=== PATIENT | male | born 1965 | race Caucasian/White ===

== ENCOUNTER → 2020-05-30 14:59 | Outpatient (CLI) | payer BC, SELFPAY ==
[2020-05-30 15:07] LABS: Red Blood Cells-Urine 0 SEEN /hpf (0-5); Squamous Epithelial Cells - UA 0 SEEN /hpf (0-5); White Blood Cells 0 SEEN /hpf (0-5)
[2020-05-30 17:51] LABS: Absolute Neutrophil Count 7.4 X10^3/uL (2.0-7.7); Basophil# 0.03 X10^3/uL; Basophil% 0.3 % (0-1); Eosinophil# 0.06 X10^3/uL; Eosinophils% 0.6 % (0-5); Hematocrit 47.3 % (40-54); Hemoglobin 15.8 g/dL (13.0-16.5); Lymphocyte % 18.8 % (19-41); Mean Corp Hgb Conc 33.4 g/dL (32-36); Mean Corpuscular Hgb 30.9 pg (27.0-32.0); Mean Corpuscular Volume 92.6 fL (80-94); Mean Platelet Vol. 11.1 fl (6.2-12.0); Monocyte# 0.76 X10^3/uL; Monocyte% 7.5 % (0-10); NRBC Flagged by Analyzer 0 % (0-5); Neutrophil # 7.35 X10^3/uL (2.7-7.7); Neutrophil % 72.5 % (47-70); Platelet Count 311 K/mm3 (150-450); RBC Distribution Width CV 11.8 % (11.6-14.6); RBC Distribution Width SD 40.5 fl (35.1-43.9); Red Blood Count 5.11 M/mm3 (4.6-6.2); White Blood Count 10.1 K/mm3 (4.4-11.0)
[2020-05-30 18:00] LABS: Color, Urine Straw (Yellow); Glucose, Dipstick Normal (Normal); Ketone-Dipstick Negative (Negative); Leukocyte Esterase-Dipstick Negative /ul (Negative); Nitrite-Dipstick Negative (Negative); Occult Blood-Urine Negative /ul (Negative); Protein-Dipstick Negative (Negative); Specific Gravity, Urine 1.015 (1.002-1.030); Urine Bilirubin Dipstick Negative (Negative); Urine Clarity Clear (Clear); Urine Urobilinogen Normal (Normal)
[2020-05-30 18:16] LABS: Bacteria RARE /hpf (None Seen); Mucous, Urine 2+ /hpf (<or=2+)
[2020-05-30 18:29] LABS: Vitamin D,25 Hydroxy 85.2 ng/mL
[2020-05-30 18:33] LABS: ALB/GLOB Ratio 1.4 RATIO (0.9-2.4); AST(SGOT) 14 U/L (15-37); Alanine Aminotransfer ALT/SGPT 33 U/L (16-61); Albumin, Serum 4.2 g/dL (3.2-5.0); Alkaline Phosphatase 82 U/L (45-117); Amylase 66 U/L (25-115); Anion Gap 6 (5-15); BUN 16 mg/dL (7-18); BUN/Creat Ratio 13.7 RATIO (10-20); Chloride 102 mmol/L (98-107); Creatinine, Serum 1.17 mg/dL (0.70-1.30); EST Glomerular Filtration Rate 68 mL/min (>60); Est Glom Filt Rate - Afr Amer 83 mL/min (>60); Globulin 3.1 g/dL (2.2-4.2); Glucose 69 mg/dL (74-106); Lipase 115 U/L (73-393); PSA,Total - Annual Screen 2.92 ng/mL (0.00-4.00); Potassium 3.8 mmol/L (3.5-5.1); Protein, Total 7.3 g/dL (6.4-8.2); Sodium Level 137 mmol/L (136-145); Thyroid Stim Hormone (TSH) 1.51 uIU/mL (0.358-3.74)
[2020-05-30 18:37] LABS: Microalbumin,Random Urine 6.9 mg/L (NO RANGE EST.); Microalbumin:Creatinine Ratio 6.2 mg/g CRE (<30 mg/g CRE)
== END ==
PROVIDERS: PCP Nurse Practitioner; Referring Provider Nurse Practitioner; Visit Provider Nurse Practitioner
DX: R10.9 Unspecified abdominal pain (principal); Z12.11 Encounter for screening for malignant neoplasm of colon; Z12.5 Encounter for screening for malignant neoplasm of prostate; F41.1 Generalized anxiety disorder; E55.9 Vitamin D deficiency, unspecified
CPT/HCPCS: 36415; 80053; 81001; 82043; 82150; 82306; 82570; 83690; 84153; 84443; 85025; G0103

== ENCOUNTER 2020-07-11 06:13 | Day surgery (SDC) | payer BC, SELFPAY ==
[2020-06-11 08:50] VITALS: BMI 20.2
[2020-07-11] VITALS (8 sets, daily range): BP systolic 90–132; BP diastolic 55–68; PULSE 55–59; RESP 14–16; TEMP 36.6–37.4; O2SAT 93–100; BMI 21.8
--- NOTE | 2020-07-11 06:47 | HP.PCM_ITS ---
History and Physical Date of Admission: 07/11/20 Intake Vital Signs 06/11/20 Height 5 ft 7.5 in 06/11/20 Weight: 131 lb 4 oz 06/11/20 BMI 20.2 06/11/20 BP 116/75 06/11/20 Blood Pressure Location [facility] 06/11/20 Position Sitting 06/11/20 Respiration 18 06/11/20 Pulse 59 L 06/11/20 Pulse Source NIBP 06/11/20 Temp 97.9 F 06/11/20 Temp Source Temporal 06/11/20 Pulse Oximetry (%) 96 06/11/20 Oxygen Delivery Method room air Intake Visit Reasons: CSCOPE, WEIGHT LOSS Chief Complaint: colonoscopy/ EGD Ceo Required: No Is patient in pain?: Yes Allergies esomeprazole [From Nexium] Allergy (Mild, Verified 06/11/20 08:50) hives Medications dicyclomine 10 mg capsule 10 mg PO BID #60 cap 06/11/20 [Rx Confirmed 06/11/20] gabapentin 100 mg capsule ea PO 06/11/20 [History Confirmed 06/11/20] mirtazapine 30 mg tablet mg PO 06/11/20 [History Confirmed 06/11/20] rivaroxaban 20 mg tablet 20 mg PO DAILY? tablet 06/11/20 [History Confirmed 06/11/20] PFSH Medical History? (Updated 06/11/20 @ 14:[address] Prabhu Del Rosario MD) Anxiety and depression (Acute) Atrial fibrillation (Acute) Back pain (Acute) Fibromyalgia (Acute) Hemorrhoids (Acute) Myocardial infarction (Acute) Pacemaker (Acute) Sleep apnea (Acute) Surgical History? (Updated 06/11/20 @ 08:49 by Michelle Roman) History of ankle surgery (Acute) Pacemaker (Acute) Family History? (Updated 06/11/20 @ 08:49 by Michelle Roman) Mother HypertensionBrother Cancer ?? ? pancreas Social History? (Updated 06/11/20 @ 14:[address] Prabhu Del Rosario MD) Smoking Status:? Never smoker HPI HPI HPI: MORA BARLOW, is a 55 M who presents to the office today for HPI HPI Surgical H&P: Yes HPI: MORA BARLOW, is a 55 M who presents to the office today for right lower quadrant pain as well as constipation and unintentional weight loss.? The patient has lost over 35 pounds over the last 6 months.? The patient reports a severe amount of anxiety due to multiple social factors and he says this makes the abdominal pain worse.? He is on a blood thinner and he has not been on a PPI.? ROS General General: Yes weight change and fatigue; no appetite, colon cancer, breast cancer or weakness HEENT HEENT: No difficulty swallowing, eye injury, eye surgery, swollen glands or hoarseness Endo Endocrine: No thyroid disease, diabetes mellitus, thyroid cancer, Hair loss, heat intolerance or cold intolerance Skin Skin: Yes changing moles; no rash Musc Musculoskeletal: Yes back problems; no arthritis, rheumatoid arthritis, gout or joint pain Cardio Cardiovascular: Yes pacemaker, atrial fibrillation and heart attack; no murmur, heart disease, high blood pressure, heart stent, palpitations, shortness of breat with exertion or chest pain Psych Psychiatric: Yes depression and anxiety; no hearing voices Resp Respiratory: No shortness of breath, Yes sleep apnea, No cough, No COPD, No asthma, No emphysema, No wheezing Gastro Gastrointestinal: Yes abdominal pain, Yes nausea or vomiting, No diarrhea, Yes constipation, No blood in stool, No acid reflux, Yes hemorrhoids, No ulcers, No gallbladder problem, No black,tarry stools Sridhar Hematologic: Yes blood thinners, No blood disorders, No bleeding, No anemia, No blood clots Neuro Neurologic: No weakness Exam Const General: cooperative Orientation: alert, oriented x3 Resp Effort & Inspection: normal respiratory effort Auscultation: clear to auscultation bilaterally Cardio Rate: regular rate Rhythm: regular rhythm Heart Sounds: no murmurs GI Inspection: non-distended Palpation: soft, nontender Assessment & Plan Problems 1. Weight loss, unintentional? R63.4 2. Constipation, unspecified constipation type? K59.00 3. Right sided abdominal pain? R10.9 Plan The patient reports he is having severe anxiety and he has been having constipation as well as right lower quadrant pain. I will prescribe the patient some Bentyl to see if this helps because he says he has IBS as well.? I would also like him to have an EGD and colonoscopy.? He has had over 30 pounds of unintentional weight loss over the last 6 months.? He also has never had a colonoscopy.? He does not report any blood in the stool.? He had no abdominal pain to palpation but he says the anxiety makes abdominal pain worse as was the constipation. I explained endoscopy in detail to the patient.? I explained the risks including but not limited to stroke or heart attack with anesthesia, perforation of the GI tract, bleeding, infection.? I explained that any of these could necessitate further emergency surgery.? The patient understands and all questions were answered sufficiently.? The patient wishes to proceed with procedure. Prabhu Del Rosario MD Pager: [facility] [address] [place] [address] [address] [place] [address] Office: I have seen and reexamined the patient and there are no changes.
[2020-07-11] MEDS: Lactated Ringers 1,000 ML 100 ML IV (07:04)
--- NOTE | 2020-07-11 07:30 | IMM_PTH ---
PATIENT: MORA BARLOW LOC: EN U#:[id number] AGE/SX: 55/M ROOM: RE07/11/[address]: Dr. Prabhu Del Rosario MD : 1965 BED: DIS: 07/11/2020 SPEC #: [id number] RECD: 07/11/20 11:08 STATUS: CHAY MARYLU #: [id number] ARTURO: 07/11/20 07:[address]: Prabhu Del Rosario DEPT: IMMUNOHISTOCHEMISTRY RECD BY: Carey James ENTERED: 07/11/20 11:09 SP TYPE: IMMUNO OTHR DR: My Palumbo, HIGHWAY CONSTRUCTION INSPECTOR-C Tissues: A - Stomach, NOS Procedures: H Pylori (initial) PHYSICIAN & INSTITUTION [place] [id number] SPECIMEN INFORMATION: Tissue Source: A ? Antrum biopsy Clinical Info: Weight loss, constipation, right-sided abdominal pain Specimen Number: [id number] CPT code: 38838 METHODOLOGY: Deparaffinized sections of prefer/formalin-fixed tissue or PAP/DQ stained slides are incubated with monoclonal/polyclonal antibodies/oligonucleotide probes. Localization is made via biotin free immunoperoxidase method. Appropriate controls are performed and reacted as expected. Results on target cell population are indicated in the following table: RESULTS: ANTIBODY / CLONE RESULT Block A H Pylori (polyclonal) negative These tests were developed and their performance characteristics determined by [facility]. They may not have been cleared or approved by the U.S. Food and Drug Administration. The FDA has determined that such clearance or approval is not necessary. INTERPRETATION: A. Antrum biopsy: Negative for Helicobacter pylori organisms. SJ:adan 07/14/2020
--- NOTE | 2020-07-11 07:30 | EGD_PTH ---
PATIENT: MORA BARLOW LOC: EN U#:[id number] AGE/SX: 55/M ROOM: RE07/11/[address]: Dr. Prabhu Del Rosario MD : 1965 BED: DIS: 07/11/2020 SPEC #: [id number] RECD: 07/11/20 09:52 STATUS: CHAY MARYLU #: [id number] ARTURO: 07/11/20 07:[address]: Prabhu Del Rosario DEPT: SURGICAL PATHOLOGY RECD BY: Savi Melendrez ENTERED: 07/11/20 10:18 SP TYPE: EGD BIOPSY OT DR: My Palumbo, COMMERCIAL FOOD INSTRUCTORBarbC Tissues: A - Gastric mucous membrane B - Sigmoid colon biopsy Procedures: Surgery Specimen Level IV HEADER OPERATION: Colonoscopy, EGD ([facility] PRE-OP DIAGNOSIS: Weight loss, constipation, right-sided abdominal pain TISSUE SUBMITTED: A ? Antrum for H. pylori and path, B ? Sigmoid polyp MICROSCOPIC DIAGNOSIS A. Antrum biopsy: Mild gastritis. See microscopic description and comment. B. Sigmoid polyp, biopsy: Tubular adenoma. Fragments of fecal material. SJ:adan 07/14/2020 COMMENT A. The results of immunohistochemistry for Helicobacter pylori will be reported separately ([id number]). MICROSCOPIC DESCRIPTION Slides are reviewed. A. The specimen shows fragments of gastric mucosa with chronic inflammatory cell infiltrates in the lamina propria consisting of lymphocytes and plasma cells, consistent with mild chronic gastritis. GROSS DESCRIPTION A - Received in fixative is one container labeled with the patient's name and designated gastric antrum. The specimen consists of multiple irregular fragments of light parrish soft tissue that in aggregate measure 0.6 x 0.5 x 0.1 cm. The specimen is totally submitted in one cassette. B - Received in fixative is one container labeled with the patient's name and designated sigmoid polyp. The specimen consists of multiple irregular fragments of light parrish soft tissue that in aggregate measure 0.6 x 0.6 x 0.1 cm. The specimen is totally submitted in one cassette. / AM:adan 07/11/20 TC:1 CPT: 72362 x2
--- NOTE | 2020-07-11 07:53 | OP.EGD_ITS ---
Patient Name: Clemente Galindo Procedure Date: 07/11/2020 7:22 AM Date of : 1965 Age: 55 Procedure: Upper GI endoscopy Indications: Abdominal pain in the right lower quadrant, Weight loss Providers: Prabhu Del Rosario MD Medicines: Monitored Anesthesia Care Patient Profile: This is a 55 year old male. Refer to note in patient chart for documentation of history and physical. Complications: No immediate complications. Estimated blood loss: Minimal. Procedure: Pre-Anesthesia Assessment: - Prior to the procedure, a History and Physical was performed, and patient medications and allergies were reviewed. The patient's tolerance of previous anesthesia was also reviewed. The risks and benefits of the procedure and the sedation options and risks were discussed with the patient. All questions were answered, and informed consent was obtained. Prior Anticoagulants: The patient has taken Xarelto (rivaroxaban), last dose was 2 days prior to procedure. After reviewing the risks and benefits, the patient was deemed in satisfactory condition to undergo the procedure. After obtaining informed consent, the endoscope was passed under direct vision. Throughout the procedure, the patient's blood pressure, pulse, and oxygen saturations were monitored continuously. The gastroscope was introduced through the mouth, and advanced to the third part of duodenum. The upper GI endoscopy was accomplished without difficulty. The patient tolerated the procedure well. Scope In: 7:31:37 AM Scope Out: 7:33:45 AM Total Procedure Duration Time 0 hours 2 minutes 8 seconds Findings: Scattered mild inflammation with hemorrhage characterized by adherent blood was found in the stomach. Biopsies were taken with a cold forceps for Helicobacter pylori testing. The examined duodenum was normal. The esophagus was normal. Impression: - Gastritis with hemorrhage. Biopsied. - Normal examined duodenum. - Normal esophagus. Recommendation: - Discharge patient to home. - Resume previous diet. - Resume Xarelto (rivaroxaban) at prior dose tomorrow. - Await pathology results. - Use Prilosec (omeprazole) 40 mg PO daily. - Use sucralfate tablets 1 gram PO QID for 4 weeks. - Return to my office in 4 weeks. Procedure Code(s): --- Professional --- 65575, Esophagogastroduodenoscopy, flexible, transoral; with biopsy, single or multiple Diagnosis Code(s): --- Professional --- K29.71, Gastritis, unspecified, with bleeding R10.31, Right lower quadrant pain R63.4, Abnormal weight loss CPT copyright 2017 [employer]. All rights reserved. The codes documented in this report are preliminary and upon jogger operator review may be revised to meet current compliance requirements. Prabhu Del Rosario MD 07/11/2020 7:53:28 AM This report has been signed electronically. Number of Addenda: 0 Note Initiated On: 07/11/2020 7:22 AM
--- NOTE | 2020-07-11 07:54 | OP.CCLET_ITS ---
07/11/2020 My Palumbo, AUBREE [address] [place] [address] Re : Upper GI endoscopy procedure for Clemente Galindo Dear Ms. Palumbo This procedure was performed on Saturday, July 11, 2020. My impressions and recommendations are as follows: Impressions : - Gastritis with hemorrhage. Biopsied. - Normal examined duodenum. - Normal esophagus. Recommendations : - Discharge patient to home. - Resume previous diet. - Resume Xarelto (rivaroxaban) at prior dose tomorrow. - Await pathology results. - Use Prilosec (omeprazole) 40 mg PO daily. - Use sucralfate tablets 1 gram PO QID for 4 weeks. - Return to my office in 4 weeks. My findings are described in the full procedure note, which is enclosed. If I can be of further assistance, please feel free to contact me at Doctor phone number(s): , Work: . Sincerely, Prabhu Del Rosario MD 07/11/2020 7:53:28 AM This report has been signed electronically.
--- NOTE | 2020-07-11 07:55 | OP.CCLET_ITS ---
07/11/2020 My Palumbo, AUBREE [address] [place] [address] Re : Colonoscopy procedure for Clemente Galindo Dear Ms. Palumbo This procedure was performed on Saturday, July 11, 2020. My impressions and recommendations are as follows: Impressions : - One small polyp in the sigmoid colon, removed with a hot snare. Resected and retrieved. - The examination was otherwise normal on direct and retroflexion views. Recommendations : - Discharge patient to home. - Resume previous diet. - Continue present medications. - Await pathology results. - Repeat colonoscopy in 5 years for surveillance based on pathology results. My findings are described in the full procedure note, which is enclosed. If I can be of further assistance, please feel free to contact me at Doctor phone number(s): , Work: . Sincerely, Prabhu Del Rosario MD 07/11/2020 7:55:00 AM This report has been signed electronically.
--- NOTE | 2020-07-11 07:55 | OP.COLON_ITS ---
Patient Name: Clemente Galindo Procedure Date: 07/11/2020 7:35 AM Date of : 1965 Age: 55 Procedure: Colonoscopy Indications: Abdominal pain in the right lower quadrant Providers: Prabhu Del Rosario MD Medicines: Monitored Anesthesia Care Patient Profile: This is a 55 year old male. Refer to note in patient chart for documentation of history and physical. Last Colonoscopy: none. The patient's first colonoscopy is today. Complications: No immediate complications. Procedure: Pre-Anesthesia Assessment: - Prior to the procedure, a History and Physical was performed, and patient medications and allergies were reviewed. The patient's tolerance of previous anesthesia was also reviewed. The risks and benefits of the procedure and the sedation options and risks were discussed with the patient. All questions were answered, and informed consent was obtained. Prior Anticoagulants: The patient has taken Xarelto (rivaroxaban), last dose was 2 days prior to procedure. After reviewing the risks and benefits, the patient was deemed in satisfactory condition to undergo the procedure. After I obtained informed consent, the scope was passed under direct vision. Throughout the procedure, the patient's blood pressure, pulse, and oxygen saturations were monitored continuously. The colonoscope was introduced through the anus and advanced to the cecum, identified by appendiceal orifice and ileocecal valve. Scope In: 7:36:03 AM Scope Withdrawal Time 0 hours 6 minutes 37 seconds Scope Out: 7:46:24 AM Total Procedure Duration Time 0 hours 10 minutes 21 seconds Findings: A small polyp was found in the sigmoid colon. The polyp was removed with a hot snare. Resection and retrieval were complete. The exam was otherwise without abnormality on direct and retroflexion views. Impression: - One small polyp in the sigmoid colon, removed with a hot snare. Resected and retrieved. - The examination was otherwise normal on direct and retroflexion views. Recommendation: - Discharge patient to home. - Resume previous diet. - Continue present medications. - Await pathology results. - Repeat colonoscopy in 5 years for surveillance based on pathology results. Procedure Code(s): --- Professional --- 43107, Colonoscopy, flexible; with removal of tumor(s), polyp(s), or other lesion(s) by snare technique Diagnosis Code(s): --- Professional --- D12.5, Benign neoplasm of sigmoid colon R10.31, Right lower quadrant pain CPT copyright 2017 [employer]. All rights reserved. The codes documented in this report are preliminary and upon pumper hand review may be revised to meet current compliance requirements. Prabhu Del Rosario MD 07/11/2020 7:55:00 AM This report has been signed electronically. Number of Addenda: 0 Note Initiated On: 07/11/2020 7:35 AM
== END 2020-07-11 08:51 | disposition home or self-care (01) ==
LOC: EN 06:16 → AC 06:19
PROVIDERS: PCP Nurse Practitioner; Referring Provider Nurse Practitioner; Visit Provider Surgery
PROC: 0DJD8ZZ Inspection of Lower Intestinal Tract, Via Natural or Artificial Opening Endoscopic (ICD-10-PCS; CPT 45378; principal; 2020-07-11 07:25)
DX: D12.5 Benign neoplasm of sigmoid colon (principal); K29.71 Gastritis, unspecified, with bleeding; R63.4 Abnormal weight loss; K58.9 Irritable bowel syndrome, unspecified; I48.91 Unspecified atrial fibrillation; M79.7 Fibromyalgia; G47.30 Sleep apnea, unspecified; F32.9 Major depressive disorder, single episode, unspecified; F41.9 Anxiety disorder, unspecified; Z79.01 Long term (current) use of anticoagulants; Z79.899 Other long term (current) drug therapy; I25.2 Old myocardial infarction; Z95.0 Presence of cardiac pacemaker
CPT/HCPCS: 43239; 45385; 87426; 88305; 88342; C9803; J7120; J2405

== ENCOUNTER → 2020-08-19 07:47 | Outpatient (CLI) | payer BC, SELFPAY ==
[2020-07-11 06:59] VITALS: BMI 21.8
--- NOTE | 2020-08-19 07:51 | CT_ITS ---
STUDY: CT ABDOMEN AND PELVIS WITH CONTRAST REASON FOR EXAM: Male, 55 years old. Abdominal pain RADIATION DOSAGE (If Supplied By Facility): CTDIvol = ( 9.98 ) mGy, DLP = ( 501.22 ) mGycm TECHNIQUE: Transaxial images were obtained from the dome of the diaphragm to the symphysis pubis with oral contrast. 100ML ISOVUE 300 was administered. Sagittal and coronal images were reconstructed. Individualized dose optimization techniques were used for this CT. COMPARISON: None. FINDINGS: The visualized lung bases are unremarkable. The visualized portions of the heart are within normal limits. Normal liver. Normal gallbladder and extrahepatic biliary system. Normal spleen. Normal pancreas. Normal bilateral adrenal glands. Normal right kidney. Normal left kidney. Normal visualized stomach. Normal small intestine. Large amount of stool throughout the colon suggestive of constipation. The appendix is visualized and appears normal. Normal abdominal aorta. Normal inferior vena cava. Normal retroperitoneum. Normal urinary bladder. Normal abdominal wall. Normal osseous structures. CT/Abdomen/Pelvis WITH Contrast IMPRESSION: Suspect constipation. Electronically Signed: Acosta Arguelles MD at 13:41 EDT Tel , Service support ,
== END ==
PROVIDERS: PCP Nurse Practitioner; Referring Provider Surgery; Visit Provider Surgery
DX: R10.9 Unspecified abdominal pain (principal)
CPT/HCPCS: 74177; Q9967

== ENCOUNTER → 2020-09-16 16:45 | Outpatient (CLI) | payer BC, SELFPAY ==
[2020-07-11 06:59] VITALS: BMI 21.8
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
== END ==
PROVIDERS: PCP Nurse Practitioner; Referring Provider Nurse Practitioner; Visit Provider Nurse Practitioner
DX: M54.5 Low back pain (principal)
CPT/HCPCS: 72131

== ENCOUNTER → 2022-04-20 | Outpatient (CLI) | payer MEDICAID, SELFPAY ==
[2022-04-20 16:51] LABS: Absolute Lymphocyte Count 1.84 X10^3/uL (0.83-4.51); Absolute Neutrophil Count 8.3 X10^3/uL (2.0-7.7); Basophil# 0.02 X10^3/uL; Basophil% 0.2 % (0-1); Eosinophil# 0.07 X10^3/uL; Eosinophils% 0.6 % (0-5); Lymphocyte # 1.84 X10^3/ul (0.83-4.51); Lymphocyte % 16.7 % (19-41); Mean Corp Hgb Conc 34.1 g/dL (32-36); Mean Corpuscular Hgb 30.5 pg (27.0-32.0); Mean Corpuscular Volume 89.6 fL (80-94); Mean Platelet Vol. 10.6 fl (6.2-12.0); Monocyte# 0.75 X10^3/uL; Monocyte% 6.8 % (0-10); NRBC Flagged by Analyzer 0 % (0-5); Neutrophil # 8.32 X10^3/uL (2.7-7.7); Neutrophil % 75.4 % (47-70); Platelet Count 307 K/mm3 (150-450); RBC Distribution Width CV 12.7 % (11.6-14.6); RBC Distribution Width SD 41.9 fl (35.1-43.9); Red Blood Count 4.91 M/mm3 (4.6-6.2)
[2022-04-20 17:26] LABS: Vitamin D,25 Hydroxy 58.6 ng/mL
[2022-04-20 17:28] LABS: ALB/GLOB Ratio 1.5 RATIO (0.9-2.4); AST(SGOT) 16 U/L (15-37); Alanine Aminotransfer ALT/SGPT 19 U/L (16-61); Albumin, Serum 4.3 g/dL (3.2-5.0); Alkaline Phosphatase 85 U/L (45-117); Anion Gap 10 (5-15); BUN 18 mg/dL (7-18); BUN/Creat Ratio 16.1 RATIO (10-20); Calcium,Total 9.5 mg/dL (8.5-10.1); Chloride 106 mmol/L (98-107); Cholesterol 172 mg/dL (200); Creatinine, Serum 1.12 mg/dL (0.70-1.30); EST Glomerular Filtration Rate 71 mL/min (>60); Est Glom Filt Rate - Afr Amer 86 mL/min (>60); Globulin 2.9 g/dL (2.2-4.2); Glucose 104 mg/dL (74-106); High Density Lipoprotein 50 mg/dL; PSA,Total- Diagnostic 2.95 ng/mL (0.0-4.0); Potassium 3.5 mmol/L (3.5-5.1); Protein, Total 7.2 g/dL (6.4-8.2); Sodium Level 140 mmol/L (136-145); Triglycerides 92 mg/dL; Very Low Density Lipoprotein 18 mg/dL (5-40)
[2022-04-22 15:08] LABS: Anti-Centromere B Ab <0.2 AI (0.0-0.9); Anti-Chromatin <0.2 AI (0.0-0.9); Anti-Jo <0.2 AI (0.0-0.9); Anti-Scleroderma-70 AB <0.2 AI (0.0-0.9); RNP Ab <0.2 AI (0.0-0.9); SJOGREN'S Anti-SS-A test < 0.2 AI (0.0-0.9); SJOGREN'S Anti-SS-B test < 0.2 AI (0.0-0.9); Smith Ab <0.2 AI (0.0-0.9)
[2022-04-22 17:07] LABS: Endomysial Antibody IgA Negative (Negative)
[2022-04-22 18:41] LABS: Anti-dsDNA Ab 7 IU/mL (0-9)
[2022-04-22 18:50] LABS: Immunoglobulin A 172 mg/dL (90-386); t-Transglutaminase IgA <2 U/mL (0-3)
== END | disposition home or self-care (01) ==
PROVIDERS: PCP Internal Medicine; Referring Provider Internal Medicine; Visit Provider Internal Medicine
DX: M25.9 Joint disorder, unspecified (principal); R10.9 Unspecified abdominal pain; G89.29 Other chronic pain; Z13.6 Encounter for screening for cardiovascular disorders; R97.20 Elevated prostate specific antigen [PSA]; E55.9 Vitamin D deficiency, unspecified
CPT/HCPCS: 36415; 80053; 80061; 82306; 82784; 83516; 84153; 85025; 86225; 86235; 86255

== ENCOUNTER → 2022-06-16 | Outpatient (CLI) | payer MEDICAID, SELFPAY ==
[2022-06-16 12:47] LABS: Absolute Lymphocyte Count 1.59 X10^3/uL (0.83-4.51); Absolute Neutrophil Count 6.3 X10^3/uL (2.0-7.7); Basophil# 0.03 X10^3/uL; Basophil% 0.4 % (0-1); Eosinophil# 0.06 X10^3/uL; Eosinophils% 0.7 % (0-5); Hemoglobin 14.3 g/dL (13.0-16.5); Lymphocyte # 1.59 X10^3/ul (0.83-4.51); Lymphocyte % 18.7 % (19-41); Mean Corpuscular Hgb 30.9 pg (27.0-32.0); Mean Corpuscular Volume 90.7 fL (80-94); Mean Platelet Vol. 9.5 fl (6.2-12.0); Monocyte# 0.54 X10^3/uL; Monocyte% 6.4 % (0-10); NRBC Flagged by Analyzer 0 % (0-5); Neutrophil # 6.25 X10^3/uL (2.7-7.7); Neutrophil % 73.6 % (47-70); Platelet Count 433 K/mm3 (150-450); RBC Distribution Width SD 42.6 fl (35.1-43.9); Red Blood Count 4.63 M/mm3 (4.6-6.2); White Blood Count 8.5 K/mm3 (4.4-11.0)
[2022-06-16 13:49] LABS: ALB/GLOB Ratio 1.1 RATIO (0.9-2.4); AST(SGOT) 17 U/L (15-37); Alanine Aminotransfer ALT/SGPT 35 U/L (16-61); Albumin, Serum 3.9 g/dL (3.2-5.0); Alkaline Phosphatase 77 U/L (45-117); Anion Gap 4 (5-15); BUN 17 mg/dL (7-18); BUN/Creat Ratio 20.2 RATIO (10-20); CRP 4.39 mg/L (0.0-3.0); Calcium,Total 9.2 mg/dL (8.5-10.1); Chloride 106 mmol/L (98-107); Creatinine, Serum 0.84 mg/dL (0.70-1.30); EST Glomerular Filtration Rate 99 mL/min (>60); Est Glom Filt Rate - Afr Amer 120 mL/min (>60); Globulin 3.4 g/dL (2.2-4.2); Glucose 94 mg/dL (74-106); Potassium 3.7 mmol/L (3.5-5.1); Protein, Total 7.3 g/dL (6.4-8.2); Sodium Level 136 mmol/L (136-145)
== END | disposition home or self-care (01) ==
LOC: BIMLAB 11:32
PROVIDERS: PCP Internal Medicine; Visit Provider Internal Medicine
DX: R68.89 Other general symptoms and signs (principal)
CPT/HCPCS: 36415; 80053; 85025; 86140

== ENCOUNTER 2022-09-02 11:16 | Emergency (ER) | payer MEDICAID, SELFPAY ==
[2022-09-02 11:17] VITALS: BP 110/74; PULSE 64; RESP 16; TEMP 36.6; O2SAT 99
[2022-09-02 11:36] VITALS: BMI 21.2
--- NOTE | 2022-09-02 11:53 | EDS_ITS ---
HPI History of Present Illness Chief Complaint: Lower Extremity Injury Informant: patient and spouse/S.O. Narrative Narrative: Patient presents with chronic symptoms that are worse in the past week or 2. He has chronic pain in his low back, he had a CT in the past and saw 2 different spine surgeons, including Dr. Gonzalez here and Dr. Parkinson in [place], he said he does have some spinal stenosis but that his radiographic findings were relatively mild and did not correlate with the symptoms he described. He has a pacemaker from 2013 that is not MRI compatible, so we had trouble finding a facility that would turn his pacemaker off and do the MRI, he did that this past January at [facility]. He does not have the images but he has the report which is relatively mild showing some arthritis. His main complaint is that he has been having issues in his lower legs mostly the thighs, laterally, the left worse than the right, and the area of the IT band, in addition to the joints hips, knees, and less of the ankles. This pain is chronic, but worse. He did see his doctor and had some blood test and was told that he does not have psoriatic arthritis or rheumatoid arthritis like he suspects he does. He denies any bowel or bladder dysfunction/incontinence, he states he has been constipated since I was 8. [facility] Medical History Abdominal pain Acute prostatitis Anxiety and depression Atrial fibrillation Back pain CPAP (continuous positive airway pressure) dependence Depression Fibromyalgia Heartburn Hemorrhoids IBS (irritable bowel syndrome) Myocardial infarction Non-smoker Sick sinus syndrome Sleep apnea Substance abuse Wears glasses Home Medications ashwaganda PO 04/20/22 [History Last Taken Unknown] valerian root 500 mg capsule 500 mg PO QHS PRN 04/20/22 [History Last Taken Unknown] tamsulosin 0.4 mg capsule 0.4 mg PO 06/07/22 [History Last Taken Unknown] gabapentin 300 mg capsule See Rx Instructions PO TID nerve pain #120 caps 08/20/22 [Rx Last Taken Unknown] celecoxib 50 mg capsule (Celebrex) 50 mg PO BID #60 caps 08/26/22 [Rx Last Taken Unknown] polyethylene glycol 3350 17 gram/dose oral powder (Miralax) 4 g PO DAILY PRN constipation #119 grams 08/26/22 [Rx Last Taken Unknown] vit A-uitjecrd-dnp palmetto 160 mg-[place] africanum 12.5 mg capsule (Urinozinc Prostate Classic) cap PO 08/26/22 [History Last Taken Unknown] hydrocodone-acetaminophen 5-325mg 5mg-325mg 1 tab PO Q6H PRN PRN Pain 2 days #8 TABLETS 09/02/22 [Rx Last Taken Unknown] prednisone 20 mg tablet 40 mg (2 x 20 mg) PO DAILY #10 TABLETS 09/02/22 [Rx Last Taken Unknown] Allergy/AdvReac Type Severity Reaction Status Date / Time esomeprazole [From Nexium] Allergy Mild hives Verified 09/02/22 11:19 Family History Mother Hypertension Brother Cancer pancreas Father Kidney stones Atrial fibrillation Surgical History History of ankle surgery History of radiofrequency ablation procedure for cardiac arrhythmia Pacemaker Social History household members: spouse current occupational status: employed 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 Smoking Status: Never smoker Electronic Cigarette Use: not used alcohol intake: never substance use type: marijuana do you feel safe at home: Yes ROS ROS ED Constitutional Constitutional ED: Denies chills or fever(s) Gastrointestinal Gastrointestinal: Denies abdominal pain, constipation, fecal incontinence, nausea or vomiting Genitourinary Genitourinary ED: Reports other Details: no urinary retention ; Denies abdominal discomfort or urinary incontinence Musculoskeletal Musculoskeletal: Reports as per HPI and back pain; Denies neck pain Integumentary Denies rash or wounds Neurologic Neurologic: Denies headache(s), paresthesias or weakness EXAM Physical Exam Const Vital Signs: 09/02/22 11:17 Temperature 98 F Temperature Source Temporal Pulse Rate 64 Respiratory Rate 16 Blood Pressure 110/74 Blood Pressure Mean 86 Pulse Ox 99 Oxygen Delivery Method Room Air Positive well nourished and well developed General Appearance ED: well developed and NAD HEENT Negative for trauma or tenderness Eyes PERRL and EOMs intact bilaterally Neck full ROM and supple GI normal to inspection, nondistended, normoactive bowel sounds, soft to palpation and non-tender Back/Spine normal to inspection Lumbar Spine / Lower Back: ROM limited, paraspinal muscle tenderness and straight leg raise negative bilaterally; Negative for lumbar spinal tenderness Extremity normal to inspection, full ROM and no pedal edema Extremity Narrative: Has pain with ranging of everything in his lower extremities but he can do so fully and without significant discomfort. Passive internal/external rotation of the hips is painless without weightbearing. All compartments are soft and nondistended. He is tender lateral thighs bilaterally worse on the left, they are normal-feeling. Neuro oriented x3 and no sensory deficits noted Neuro Narrative: Normal DTRs. Downgoing toes bilaterally. No clonus. Sensorium / Orientation: alert Motor Exam: strength 5/5 throughout and clonus absent Deep Tendon Reflexes: Rt Patellar (L4): 2+, Lt Patellar (L4): 2+, Rt Ankle (S1): 2+ and Lt Ankle (S1): 2+ Deep Tendon Reflexes Back: Rt Patellar (L4): 2+, Lt Patellar (L4): 2+, Rt Ankle (S1): 2+ and Lt Ankle (S1): 2+ Plantar Reflex: Downgoing: bilateral Psych mental status grossly normal and thought process normal Skin no rashes or lesions noted and no wounds MDM MDM MDM Narrative Medical decision making narrative: This patient does not have an emergent process nor does he need an emergent MRI, he has no cauda equina syndrome. We spent some time discussing realistic expectations of what I can rule in and rule out here in emergency department. I advise he follow-up with a seed packer, I am happy to prescribe him something for pain, and a 5-day course of prednisone to see if that helps, he turned down Kenalog and understands. Discharge Plan Triage Chief Complaint: Lower Extremity Injury ED Provider: Pierce Todd Dx/Rx/DC Orders Clinical Impression: Joint pain of lower extremity, Lower extremity pain, bilateral, Chronic bilateral low back pain Instructions: ED Arthralgia Prescriptions: New hydrocodone-acetaminophen [hydrocodone-acetaminophen] 5-325 mg tablet 1 tab PO Q6H PRN PRN (Reason: Pain) 2 Days Qty: 8 0RF prednisone 20 mg tablet 40 mg PO DAILY Qty: 10 0RF No Action valerian root 500 mg capsule 500 mg PO QHS PRN ashwaganda PO tamsulosin 0.4 mg capsule 0.4 mg PO Urinozinc Prostate Classic 160-12.5 mg capsule PO polyethylene glycol 3350 [Miralax] 17 gram/dose powder 4 g PO DAILY PRN (Reason: constipation) Qty: 119 0RF celecoxib [Celebrex] 50 mg capsule 50 mg PO BID Qty: 60 0RF gabapentin 300 mg capsule See Rx Instructions PO TID Qty: 120 0RF Rx Instructions: 300mg am and noon, 600mg at night orally three times a day Primary Care Provider: Mariela Saxena Referrals: Mariela Saxena MD [Primary Care Provider] - (in follow up after XR and/or labs that are ordered as outpatient) Joanan Mckeon MD [Med Staff - [facility] [employer]] - As soon as possible Disposition Disposition: Home, Self Care
[2022-09-02] MEDS: predniSONE 20 MG Tablet 40 MG PO (12:02)
[2022-09-02] MEDS: HYDROcodone Bitartrate/Apap 5/325 Tablet PO (12:03)
[2022-09-02 12:28] VITALS: BP 130/69; PULSE 72; RESP 15; O2SAT 98
== END 2022-09-02 12:29 | disposition home or self-care (01) ==
PROVIDERS: Emergency Provider Emergency Medicine; PCP Internal Medicine; Visit Provider Emergency Medicine
DX: M79.604 Pain in right leg (principal); M79.605 Pain in left leg; M25.50 Pain in unspecified joint; M54.50 Low back pain, unspecified; G89.29 Other chronic pain; M48.00 Spinal stenosis, site unspecified; Z95.0 Presence of cardiac pacemaker; Z79.899 Other long term (current) drug therapy
CPT/HCPCS: 99283

== ENCOUNTER → 2022-09-09 | Outpatient (CLI) | payer MEDICAID, SELFPAY ==
--- NOTE | 2022-09-09 09:08 | RAD_ITS ---
INDICATION: hip pain EXAMINATION/TECHNIQUE: X-RAY - XR Hips Bilateral with Pelvis when performed; 2 Views COMPARISON: FINDINGS: PELVIC BONES: No displaced fracture, destructive or sclerotic lesions. Note that overlapping bowel shadows may however obscure fine detail. Sacroiliac joints are unremarkable. No widening of the pubic symphysis. HIPS: The articular structures are unremarkable. No displaced fracture seen in this frontal view. SOFT TISSUES: No soft tissue swelling or gas. RAD/Hips B/L min 2 views w/ Pelvis IMPRESSION: No evidence of displaced pelvic or hip fracture. Electronically Signed: Jonathan Collins, at 9:50 EDT ,
== END | disposition home or self-care (01) ==
LOC: MTRAD 09:03
PROVIDERS: PCP Internal Medicine; Visit Provider Internal Medicine
DX: M25.559 Pain in unspecified hip (principal); G89.29 Other chronic pain
CPT/HCPCS: 73521

== ENCOUNTER → 2023-02-24 | Outpatient (CLI) | payer MEDICAID, SELFPAY ==
[2023-02-24 12:58] LABS: Vitamin B12 459 pg/mL (211-911)
[2023-02-24 12:59] LABS: Thyroid Stim Hormone (TSH) 1.66 uIU/mL (0.358-3.74)
[2023-02-26 00:08] LABS: Lyme IgG P18 Ab Absent (.); Lyme IgG P23 Ab Absent (.); Lyme IgG P28 Ab Absent (.); Lyme IgG P30 Ab Absent (.); Lyme IgG P39 Ab Absent (.); Lyme IgG P41 Ab Absent (.); Lyme IgG P45 Ab Absent (.); Lyme IgG P58 Ab Present (.); Lyme IgG P66 Ab Absent (.); Lyme IgG P93 Ab Absent (.); Lyme IgG WB Interpretation Negative (.); Lyme IgM P23 Ab Absent (.); Lyme IgM P39 Ab Absent (.); Lyme IgM P41 Ab Absent (.); Lyme IgM WB Interpretation Negative (.)
== END | disposition home or self-care (01) ==
PROVIDERS: PCP Internal Medicine
DX: G62.9 Polyneuropathy, unspecified (principal)
CPT/HCPCS: 82784 ×3; 84165; 86334; 36415; 82607; 84443; 86617

== ENCOUNTER → 2023-06-17 | Outpatient (CLI) | payer MEDICAID, SELFPAY ==
[2023-06-17 12:35] LABS: Absolute Lymphocyte Count 1.86 X10^3/uL (0.83-4.51); Absolute Neutrophil Count 3.8 X10^3/uL (2.0-7.7); Basophil# 0.04 X10^3/uL; Basophil% 0.6 % (0-1); Eosinophil# 0.24 X10^3/uL; Eosinophils% 3.7 % (0-5); Hematocrit 46.8 % (40-54); Hemoglobin 15.7 g/dL (13.0-16.5); Lymphocyte # 1.86 X10^3/ul (0.83-4.51); Lymphocyte % 28.7 % (19-41); Mean Corp Hgb Conc 33.5 g/dL (32-36); Mean Corpuscular Hgb 29.8 pg (27.0-32.0); Mean Corpuscular Volume 88.8 fL (80-94); Mean Platelet Vol. 10.6 fl (6.2-12.0); Monocyte% 7.7 % (0-10); NRBC Flagged by Analyzer 0 % (0-5); Neutrophil # 3.83 X10^3/uL (2.7-7.7); Neutrophil % 59.1 % (47-70); Platelet Count 291 K/mm3 (150-450); RBC Distribution Width CV 12.6 % (11.6-14.6); RBC Distribution Width SD 40.9 fl (35.1-43.9); Red Blood Count 5.27 M/mm3 (4.6-6.2); White Blood Count 6.5 K/mm3 (4.4-11.0)
[2023-06-17 13:46] LABS: ALB/GLOB Ratio 1.4 RATIO (0.9-2.4); AST(SGOT) 24 U/L (15-37); Alanine Aminotransfer ALT/SGPT 20 U/L (16-61); Albumin, Serum 4.1 g/dL (3.2-5.0); Alkaline Phosphatase 94 U/L (45-117); Anion Gap 6 (5-15); BUN 16 mg/dL (7-18); BUN/Creat Ratio 15.8 RATIO (10-20); Chloride 108 mmol/L (98-107); Cholesterol 182 mg/dL (200); Creatinine, Serum 1.01 mg/dL (0.70-1.30); EST Glomerular Filtration Rate 80 mL/min (>60); Est Glom Filt Rate - Afr Amer 97 mL/min (>60); Globulin 2.9 g/dL (2.2-4.2); Glucose 101 mg/dL (74-106); High Density Lipoprotein 50 mg/dL; PSA,Total- Diagnostic 3.27 ng/mL (0.0-4.0); Potassium 4.1 mmol/L (3.5-5.1); Sodium Level 139 mmol/L (136-145); Triglycerides 87 mg/dL; Uric Acid 7.2 mg/dL (3.5-7.2); Very Low Density Lipoprotein 17 mg/dL (5-40)
== END | disposition home or self-care (01) ==
LOC: BIMLAB 09:56
PROVIDERS: PCP Internal Medicine; Visit Provider Internal Medicine
DX: M25.9 Joint disorder, unspecified (principal); M79.2 Neuralgia and neuritis, unspecified; F51.04 Psychophysiologic insomnia; F41.9 Anxiety disorder, unspecified; F32.A Depression, unspecified; Z13.6 Encounter for screening for cardiovascular disorders; N40.0 Benign prostatic hyperplasia without lower urinary tract symptoms
CPT/HCPCS: 36415; 80053; 80061; 84153; 84550; 85025

== ENCOUNTER → 2024-08-01 | Outpatient (CLI) | payer MEDICARE, SELFPAY ==
[2024-08-01 17:08] LABS: Absolute Lymphocyte Count 2.42 X10^3/uL (0.83-4.51); Absolute Neutrophil Count 5.8 X10^3/uL (2.0-7.7); Basophil# 0.05 X10^3/uL; Basophil% 0.6 % (0-1); Eosinophil# 0.18 X10^3/uL; Hematocrit 45.1 % (40-54); Hemoglobin 15.3 g/dL (13.0-16.5); Lymphocyte # 2.42 X10^3/ul (0.83-4.51); Lymphocyte % 26.7 % (19-41); Mean Corp Hgb Conc 33.9 g/dL (32-36); Mean Corpuscular Hgb 29.3 pg (27.0-32.0); Mean Corpuscular Volume 86.4 fL (80-94); Mean Platelet Vol. 10.8 fl (6.2-12.0); Monocyte# 0.59 X10^3/uL; Monocyte% 6.5 % (0-10); NRBC Flagged by Analyzer 0 % (0-5); Neutrophil # 5.79 X10^3/uL (2.7-7.7); Platelet Count 286 K/mm3 (150-450); RBC Distribution Width CV 13.1 % (11.6-14.6); RBC Distribution Width SD 41.1 fl (35.1-43.9); Red Blood Count 5.22 M/mm3 (4.6-6.2); White Blood Count 9.1 K/mm3 (4.4-11.0)
[2024-08-01 17:53] LABS: ALB/GLOB Ratio 1.7 RATIO (0.9-2.4); AST(SGOT) 19 U/L (<=37); Alanine Aminotransfer ALT/SGPT 14 U/L (<=46); Albumin, Serum 4.4 g/dL (3.4-4.8); Alkaline Phosphatase 90 U/L (40-129); Anion Gap 14 (5-15); BUN 15 mg/dL (4-19); BUN/Creat Ratio 14.5 RATIO (10-20); Calcium,Total 9.5 mg/dL (7.6-11.0); Carbon Dioxide 20.6 mmol/L (21.0-32.0); Chloride 102 mmol/L (98-108); Creatinine, Serum 1.04 mg/dL (0.70-1.20); EST Glomerular Filtration Rate 82 (>60); Globulin 2.6 g/dL (2.2-4.2); Glucose 105 mg/dL (70-99); PSA,Total- Diagnostic 3.16 ng/mL (0.00-4.00); Potassium 4.3 mmol/L (3.3-5.1); Sodium Level 136 mmol/L (133-145); Total Bilirubin 0.44 mg/dL (0.00-1.30); Vitamin D,25 Hydroxy 63.8 ng/mL (30-100)
== END | disposition home or self-care (01) ==
PROVIDERS: PCP Internal Medicine; Referring Provider Internal Medicine; Visit Provider Internal Medicine
DX: N40.1 Benign prostatic hyperplasia with lower urinary tract symptoms (principal); N41.1 Chronic prostatitis; R35.0 Frequency of micturition; G62.9 Polyneuropathy, unspecified; E55.9 Vitamin D deficiency, unspecified
CPT/HCPCS: 36415; 80053; 82306; 84153; 85025